=== PATIENT | female | born 1950 | race Caucasian/White ===

== ENCOUNTER → 2016-11-22 | Outpatient (CLI) | payer MEDICAID ==
[~2016-11-22] MED LIST: ADVAIR 250/501 EA INH; ADVAIR DISKUS 21 DSK INH; ALAVERT10 M1 PO; ALBUTEROL0.09 MG/A2 IH; ALBUTEROL0.09 MG/A2 INH; AMBIEN10 M1 PO; AMBIEN10 MG PO; AMITRIPTYLINE H10 M1 PO; ASPI-COR81 M1 PO; ASPIR LOW81 MG PO; ASPIR-LOW81 MG PO; ASPIRIN81 M1 PO; ATENOLOL25 MG PO; BUSPAR DIVIDOSE15 MG PO; CARAFATE1 G1 PO; CLARITIN REDITA10 MG PO; CORDROL20 MG PO; CYMBALTA30 MG PO; CYMBALTA60 MG PO; Clopidogrel75 MG PO; DAYPRO600 M1 PO; DICYCLOMINE HCL10 MG PO; DOXYCYCLINE MO100 MG PO; DULOXETINE HCL30 MG PO; DUONEB 3 MG/3 ML3 M1 INH; ECOTRIN325 MG; ECOTRIN325 MG PO; FAMOTIDINE40 MG PO; HYDROCODONE BIT1 T11 PO; IMDUR30 MG PO; ISORDIL TITRADO30 MG PO; ISORDIL20 MG PO; LIPITOR20 MG PO; LOVENOX30 MG/0.3 SC; MACROBID100 M1 PO; MECLIZINE25 MG PO; MOTRIN600 MG PO; MUCINEX DM 30 M1 TE1 PO; NEURONTIN100 MG PO; NICOTROL 10MG I1 BOX INH; NORCO 10-325 T1 EACH PO; OMEPRAZOLE40 MG PO; OXYCODONE10 MG PO; OXYCODONE5 MG PO; OXYCONTIN10 MG PO; PEPCID40 MG PO; PERCOCET 325 MG1 TA3; PERCOCET 325 MG1 TA3 PO; PERCOCET 325 MG1 TAB PO; PHENERGAN25 M3 PO; PHENERGAN6.25 MG/5 PO; PLAVIX75 M1 PO; PLAVIX75 MG PO; PREDNISONE10 MG PO; PRILOSEC20 MG PO; PROMETHAZINE12.5 M1 PO; PROMETHAZINE25 M1 PO; PROVENTIL0.09 MG/AC INH; RESTORIL30 MG PO; ROBITUSSIN5 ML PO; ROXICODONE5 MG PO; SINGULAIR10 MG PO; SOMA350 MG PO; SPIRIVA18 MCG IH; SPIRIVA18 MCG PO; TRAMADOL HCL50 MG PO; VALIUM10 MG PO; VALIUM5 MG PO; VENTOLIN H0.09 MG/AC INH; VENTOLIN0.09 MG/AC IH; VICO75300 PO; VICODIN 5/500 505 MG PO; VICODIN 500 MG-1 TAB PO; VICODIN HP 6601 TAB PO; ZANAFLEX2 M1 PO; ZOFRAN4 MG PO; [UNRECOGNIZED DRUG - REMARK]
== END | disposition home or self-care (01) ==
LOC: CT 11-16 10:00
DX: J84.10 Pulmonary fibrosis, unspecified (principal); R06.02 Shortness of breath; J43.8 Other emphysema

== ENCOUNTER → 2016-12-04 | Outpatient (CLI) | payer MEDICAID ==
[2016-12-05 08:12] LABS: RHEUMATOID ARTHRITIS FACTOR <10.0 IU/mL (0.0-13.9)
[2016-12-05 10:05] LABS: IMMUNOGLOBULIN IgE 002170 302 IU/mL (0-100)
[2016-12-05 14:06] LABS: ANGIOTENSIN-CONVERTING ENZYME 30 U/L (14-82)
[2016-12-06 00:04] LABS: IGG SUBCLASS 1 789 mg/dL (422-1292); IGG SUBCLASS 2 361 mg/dL (117-747); IGG SUBCLASS 3 121 mg/dL (41-129); IGG SUBCLASS 4 170 mg/dL (1-291)
[2016-12-06 20:10] LABS: BLASTOMYCES ANTIBODY 164293 Negative (Neg:<1:1)
== END | disposition home or self-care (01) ==
LOC: LAB 15:58
PROVIDERS: Internal Medicine Critical Care Medicine
DX: J84.9 Interstitial pulmonary disease, unspecified (principal)

== ENCOUNTER → 2017-01-21 | Outpatient (CLI) | payer MEDICAID ==
[~2017-01-21] MED LIST changes: +BACLOFEN20 M1 PO; +VICO10300 PO
[2017-01-21 10:25] LABS: BASO # 0.1 10*3/uL (0.0-0.1); BASO % 0.9 % (0.0-1.0); EOS # 0.4 10*3/uL (0.0-0.4); EOS % 4.3 % (1.0-4.0); HEMATOCRIT 40.3 % (37.0-47.0); HEMOGLOBIN 13.1 g/dl (12.0-16.0); LYMPH # 1.9 10*3/uL (1.3-4.4); LYMPH % 21.3 % (27.0-41.0); MEAN CELL VOLUME 103.3 fl (81.0-99.0); MEAN CORPUSCULAR HGB 33.6 pg (27.0-31.0); MEAN CORPUSCULAR HGB CONC 32.5 g/dl (33.0-37.0); MEAN PLATELET VOLUME 8.3 fl (9.6-12.3); MONO # 0.8 10*3/uL (0.1-1.0); MONO % 9.1 % (3.0-9.0); NEUT # 5.7 10*3/uL (2.3-7.9); PLATELET COUNT AUTOMATED 386 10*3/uL (130-400); RED CELL DISTRI WIDTH 14.1 % (0-14.5); WHITE BLOOD COUNT 8.9 10*3/uL (4.8-10.8)
== END | disposition home or self-care (01) ==
LOC: LAB 10:10
PROVIDERS: Physician Assistant
DX: M25.562 Pain in left knee (principal); Z96.652 Presence of left artificial knee joint

== ENCOUNTER → 2017-01-25 | Outpatient (CLI) | payer MEDICAID | END | disposition home or self-care (01) | LOC: MRI 08:39 | DX: G89.29 Other chronic pain (principal); M25.511 Pain in right shoulder; R23.3 Spontaneous ecchymoses; Z98.890 Other specified postprocedural states ==

== ENCOUNTER → 2017-05-27 | Outpatient (CLI) | payer MEDICARE, MEDICAID | END | disposition home or self-care (01) | LOC: CT 11:00 | DX: R91.1 Solitary pulmonary nodule (principal); J44.9 Chronic obstructive pulmonary disease, unspecified; M47.894 Other spondylosis, thoracic region; M51.44 Schmorl's nodes, thoracic region; Z87.891 Personal history of nicotine dependence ==

== ENCOUNTER 2017-06-09 01:59 | Emergency (ER) | payer MEDICARE, MEDICAID ==
[~2017-06-09] VITALS: Wt 59.4 kg
[2017-06-09 02:00] VITALS: BP 119/73
[2017-06-09 02:32] LABS: BASO # 0.1 10*3/uL (0.0-0.1); BASO % 0.9 % (0.0-1.0); EOS # 0.4 10*3/uL (0.0-0.4); EOS % 4.8 % (1.0-4.0); HEMATOCRIT 35.6 % (37.0-47.0); HEMOGLOBIN 11.9 g/dl (12.0-16.0); LYMPH # 2.8 10*3/uL (1.3-4.4); LYMPH % 30.5 % (27.0-41.0); MEAN CELL VOLUME 103.5 fl (81.0-99.0); MEAN CORPUSCULAR HGB 34.6 pg (27.0-31.0); MEAN CORPUSCULAR HGB CONC 33.4 g/dl (33.0-37.0); MEAN PLATELET VOLUME 8.1 fl (9.6-12.3); MONO % 11.2 % (3.0-9.0); NEUT # 4.7 10*3/uL (2.3-7.9); NEUT % 52.2 % (47.0-73.0); PLATELET COUNT AUTOMATED 342 10*3/uL (130-400); RED BLOOD COUNT 3.44 10*6/uL (4.10-5.10); RED CELL DISTRI WIDTH 14.2 % (0-14.5)
[2017-06-09 02:43] LABS: BUN 6 mg/dl (7-24); CHLORIDE 104 mmol/L (98-107); CREATININE 0.51 mg/dL (0.55-1.02); POTASSIUM 3.3 mmol/L (3.5-5.1); SODIUM 137 mmol/L (136-145)
[2017-06-09 03:30] LABS: BILIRUBIN NEGATIVE (NEGATIVE); BLOOD NEGATIVE (NEGATIVE); CLARITY CLEAR (CLEAR); COLOR YELLOW (YELLOW); GLUCOSE NEGATIVE (NEGATIVE); KETONE NEGATIVE (NEGATIVE); LEUKO ESTERASE TRACE (NEGATIVE); NITRITE NEGATIVE (NEGATIVE); SPECIFIC GRAVITY <= 1.005 (1.005-1.030); UROBILINOGEN 0.2 E.U./dl (0.2-1.0)
[2017-06-09 03:39] LABS: BACTERIA 1+; URINE AMPHETAMINES < 1000 (1000ng/ml); URINE BARBITURATES < 200 (200ng/ml); URINE BENZODIAZEPINES > 200 (200ng/ml); URINE CANNABINOIDS (THC) < 50 (50ng/ml); URINE COCAINE < 300 (300ng/ml); URINE METHADONE < 300 (300ng/ml); URINE OPIATES > 300 (300ng/ml)
[2017-06-09 03:41] LABS: URINE PHENCYCLIDINE < 25 (25ng/ml)
[2017-06-09] MEDS ORDERED: IBUPROFEN400 MG PO (05:05)
== END 2017-06-09 05:48 | disposition home or self-care (01) ==
LOC: ED 01:59
PROVIDERS: Emergency Medicine Emergency Medical Services
DX: S46.911A Strain of unspecified muscle, fascia and tendon at shoulder and upper arm level, right arm, initial encounter (principal); S70.02XA Contusion of left hip, initial encounter; S00.83XA Contusion of other part of head, initial encounter; F10.129 Alcohol abuse with intoxication, unspecified; K21.9 Gastro-esophageal reflux disease without esophagitis; E78.5 Hyperlipidemia, unspecified; I10 Essential (primary) hypertension; M19.90 Unspecified osteoarthritis, unspecified site; F17.200 Nicotine dependence, unspecified, uncomplicated; Z86.73 Personal history of transient ischemic attack (TIA), and cerebral infarction without residual deficits; Z90.49 Acquired absence of other specified parts of digestive tract; Z96.642 Presence of left artificial hip joint; Z98.890 Other specified postprocedural states; Z90.710 Acquired absence of both cervix and uterus; Z79.899 Other long term (current) drug therapy; Z79.82 Long term (current) use of aspirin; Z88.1 Allergy status to other antibiotic agents; Z88.6 Allergy status to analgesic agent; Z88.8 Allergy status to other drugs, medicaments and biological substances; W01.198A Fall on same level from slipping, tripping and stumbling with subsequent striking against other object, initial encounter; Y93.01 Activity, walking, marching and hiking; Y92.090 Kitchen in other non-institutional residence as the place of occurrence of the external cause; Y99.9 Unspecified external cause status

== ENCOUNTER 2017-10-23 12:34 | Inpatient (IN) | payer MEDICARE ==
[~2017-10-23] VITALS: Ht 147.3 cm; Wt 62.7 kg
--- NOTE | ~2017-10-23 | EKG ---
[place], [place] ELECTROCARDIOGRAM REPORT NAME: VERENICE ALICEA UNIT #: [id number] ROOM: 511 DOCTOR: BRENT HENNESSY MD,DMITRI BIRTHDATE: [birth year] DOS: 10/24/2017 The electrocardiogram was done at 1:58 p.m. Normal sinus rhythm noted. Heart rate 78 beats per minute. There were no abnormalities noted with current electrocardiogram. DMITRI KENNEDY MD CM:EKGRPT:ELECTROCARDIOGRAM REPORT [id number] DMITRI HENNESSY MD
--- NOTE | ~2017-10-23 | PR ---
[place], [place] PROGRESS NOTE [id number] UN[facility] #: [id number] ROOM: 511 DOCTOR: BRENT HENNESSY MDDMITRI BIRTHDATE: [birth year] DOS: 10/25/2017 SUBJECTIVE: The patient was noted about the same yesterday, still noted coughing, chest congestion, wheezing and shortness of breath. Denies symptoms of hemoptysis, fatigue, was reported. She has been continued on intravenous corticosteroids, bronchodilators, other medical management as previously. Denies any pain or edema of the lower extremity. Denies any abdominal pain, nausea, vomiting, dysphagia. Remaining systems were reviewed. They were noted all negative. She is currently noted n.p.o. past midnight for bronchoscopy to be done today as well. OBJECTIVE: VITAL SIGNS: Low grade fever 99.1 degree Fahrenheit, respiration 18, heart rate 82, blood pressure 113/70 recorded this morning. Pulse oxygen saturation on room air 93% saturation. HEENT: Showed no acute change. NECK: Supple. CARDIOVASCULAR: S1, S2 audible. LUNGS: The patient was noted with moderate decreased breath sounds noted in the lungs bilaterally. ABDOMEN: Soft, nontender. EXTREMITIES: The patient was noted without any acute edema. SKIN: No lesions or rashes. MUSCULOSKELETAL SYMPTOMS: Without any acute deformities. LABORATORY DATA: Reviewed today. CBC this morning, hemoglobin 11.2, hematocrit 34.2, platelet count elevated at 137,000, normal WBC count. Blood culture of 10/23 reviewed and noted no bacterial growths. ____ cultures are pending. Urine culture finalized as no bacterial growth. PT/PTT yesterday was done, noted as negative for bronchoscopy. Platelet function assay was noted normal. CT scan of the chest that I ordered without contrast completed, was personally reviewed for this patient shows evidence of changes of emphysema as well as a UIP findings highly suggestive for the patient current CT scan of chest with subpleural distribution honeycombing and traction bronchiectasis. An 8-mm nodule for the patient remains unchanged in the right upper lobe in the subpleural area as compared with 05/12/2016. The interstitial pulmonary fibrotic changes for the patient noted increased as compared with the previous CT scan in 2016. IMPRESSION: 1. Ongoing acute exacerbation of chronic obstructive pulmonary disease with acute tracheobronchitis. 2. Stable pulmonary nodule in the right upper lung, most likely granuloma. 3. Strong suspicion of a UIP. 4. Chronic nicotine dependence. PLAN OF TREATMENT: Continue current dose of corticosteroids, bronchodilators, antibiotic. Proceed with the bronchoscopy assessment of cough. BAL specimen will be also obtained for this patient's right lower lobe subsegments as well [place], [place] PROGRESS NOTE NAME: VERENICE ALICEA UNIT #: [id number] ROOM: [facility] DOCTOR: BRENT HENNESSY MD,DMITRI BIRTHDATE: [birth year] for cell differential. This will hopefully also helpful to assess the patient's interstitial pulmonary fibrosis designation. Other supportive plan of therapy care plan. Addition treatment changes to be made based on progression of illness. DMITRI KENNEDY MD CM:PNTRANS [id number] 2 DMITRI HENNESSY MD 10/26/17 0100 interface
--- NOTE | ~2017-10-23 | PR ---
[place], [place] PROGRESS NOTE NAME: VERENICE ALICEA UNIT #: [id number] ROOM: 511 DOCTOR: DMITRI BUNN MD BIRTHDATE: [birth year] DOS: 10/26/2017 PULMONARY PROGRESS NOTE SUBJECTIVE: She has shown significant improvement and reduction in respiratory symptoms after the bronchoscopy with coughing, shortness of breath and all symptoms have been improving. Preliminary bacteria, no bacterial growth was noted on the cultures. The patient denies symptoms of hemoptysis or any chest pain. PHYSICAL EXAMINATION: VITAL SIGNS: For the patient which has been recorded showed the temperature noted as normal, respiratory rate 18, heart rate 87, blood pressure 100/58. HEENT: Showed head was atraumatic, eyes nonicterus. NECK: Supple. CARDIOVASCULAR: S1, S2 audible. LUNGS: Noted with crackles of the lungs. There was no wheezing. ABDOMEN: Soft, nontender. EXTREMITIES: Without any edema. LABORATORY DATA: The culture of the bronchial washing shows normal angelica, the Gram stain with a few white blood cells with epithelial cells, no microorganisms seen. The differential noted at 13% eosinophils with 70% macrophages. IMPRESSION: The patient has been currently noted with interstitial pulmonary fibrosis, status post bronchoscopy. The patient is noted with reduction and improvement in respiratory symptoms and resolving acute exacerbation of chronic obstructive pulmonary disease. PLAN OF MANAGEMENT: The patient could be considered home discharge pm oral medications and tapering antibiotics. Outpatient followup for interstitial lung disease with Pulmonary as previously scheduled. [place], [place] PROGRESS NOTE NAME: VERENICE ALICEA UNIT #: [id number] ROOM: 511 DOCTOR: DMITRI BUNN MD BIRTHDATE: [birth year] DMITRI KENNEDY MD CM:PNTRANS [id number] DMITRI HENNESSY MD 10/26/17 1024 interface
--- NOTE | ~2017-10-23 | PROC NOTE ---
[place], [place] PROCEDURE NOTE NAME: VERENICE ALICEA UNIT #: [id number] ROOM: 511 DOCTOR: BRENT HENNESSY MD,DMITRI BIRTHDATE: [birth year] DOS: 10/25/2017 PREOPERATIVE DIAGNOSES: Bilateral pulmonary infiltration with severe nonproductive cough with exacerbation of chronic obstructive pulmonary disease. POSTOPERATIVE DIAGNOSES: Evidence of mucus plug in bronchial tree bilaterally and subsegments. No endobronchial obstructive lesion. BAL specimen of the right lower lobe was also obtained. PROCEDURE DESCRIPTION: Informed consent obtained for the patient. The patient was brought to the OR and placed in supine position. Conscious sedation administered by the Anesthesia Department. After achieving proper sedation, airway introduced into the mouth. Bronchoscope advanced to the airway into laryngeal area. Epiglottis and vocal cords were seen. The bronchoscope advanced to the vocal cords and to tracheal lumen. Tracheal lumen was identified, but noted with small amount of mucoid secretion. The patient suctioned out to the saima level. Similar secretion present in bilateral endobronchial tree, which was suctioned out and cleared that with normal saline wash, sent for cultures. Procedure was well tolerated by the patient without difficulty. Postoperative findings will be discussed once the patient recovered the effects of acute sedation. DMITRI KENNEDY MD CM:PROCNOTE:PROCEDURE NOTE [id number] DMITRI HENNESSY MD
--- NOTE | ~2017-10-23 | CON ---
[place], [place] REPORT OF CONSULTATION NAME: VERENICE ALICEA UNIT #: [id number] ROOM: 511 DOCTOR: DMITRI BUNN MD BIRTHDATE: [birth year] DOS: 10/24/2017 PULMONARY CONSULTATION, EVALUATION, AND MANAGEMENT CONSULTATION REQUESTED BY: Hospitalist services. CHIEF COMPLAINT: The consultation was done for the assessment of ongoing acute exacerbation of chronic obstructive pulmonary disease. The patient with progressive symptoms, now resolving, previously for the past several weeks and current hospitalization for acute exacerbation of chronic obstructive pulmonary disease. HISTORY OF PRESENT ILLNESS: This is a 67-year-old white female patient who has been known to me very well. The patient has been seen in my office recently a couple of days ago noted with progressive increased respiratory symptom ongoing for several weeks. The symptoms have been noted progressive and not resolving. The patient was assessed and advised to go to the hospital for further medical management of severe ongoing acute respiratory symptom with exacerbation of COPD, nonresponsive to the treatment. The patient went to the Emergency Room and then hospitalized on 10/23/2017. She has been noted symptoms of progressive chest congestion and coughing ongoing for the past several days. The coughing has been noted moderate to severe, nonproductive, unable to expectorate sputum with hard cough. The pain was described as low pressure with excessive cough. She has been noted continuous wheezing with tightness in the chest and shortness of breath with minimal exertion. Denies symptoms of hemoptysis. The patient has been treated previously at home for this patient with exacerbation of chronic obstructive pulmonary disease with corticosteroids and antibiotics. REVIEW OF SYSTEMS: CONSTITUTIONAL: Fatigue and tiredness noted without symptoms of fever or chills. EYES: Denies any burning, redness, or tenderness. EAR, NOSE, AND THROAT: No sore throat, hoarseness, otalgia, postnasal drainage. CARDIOVASCULAR: Denies angina pain, edema, or pain of the lower extremities. GASTROINTESTINAL: Denies dysphagia, nausea, vomiting, diarrhea, abdominal pain, hematemesis, melena, hematochezia. SKIN: Denies any abnormal lesions or rashes. MUSCULOSKELETAL: No acute joint pain reported, history of osteoarthritis, known that remains unchanged. There were no redness or deformity is reported. CENTRAL NERVOUS SYSTEM: Denies dizziness, headache, diplopia, syncopal episodes. Remaining systems were reviewed with the patient, they were noted all negative. PAST MEDICAL HISTORY: The patient was known with: 1. History of COPD. 2. Bronchial asthma, moderate to severity. 3. History of post-inflammatory pulmonary fibrosis. 4. An 8 mm nodule in the right upper lobe. 5. Coronary artery disease. [place], [place] REPORT OF CONSULTATION NAME: VERENICE ALICEA UNIT #: [id number] ROOM: 511 DOCTOR: BRENT HENNESSY MD,DMITRI BIRTHDATE: [birth year] 6. Essential hypertension. 7. Mild obesity. 8. Hypercholesterolemia. PAST SURGICAL HISTORY: 1. Laparoscopic cholecystectomy. 2. Left shoulder arthroplasty. 3. Right rotator cuff surgery. 4. Heel spur removed. 5. Arthroscopy of the right knee. 6. History of left femur fracture. 7. Multiple right ankle surgeries. 8. Hiatal hernia repair. 9. Cataract extraction with lens implantation. 10. Left breast biopsy, which was benign. SOCIAL HISTORY: The patient is , has 2 children, lives at home. Smoking noted from age of [age] years old, continued chronic tobacco use, 1 pack of cigarettes per day, actively. No history of illicit drug use. FAMILY HISTORY: Father at 80 years old, complication of diabetes mellitus. The mother at the age of 52 years, complication related to the renal failure. MEDICATIONS: The patient at home were noted as use of ProAir HFA inhaler, albuterol nebulizer p.r.n. use, aspirin, atenolol, Plavix, diazepam, Cymbalta, Advair, [place], loratadine, omeprazole, promethazine, and Incruse Ellipta. DRUG ALLERGIES: 1. CIPROFLOXACIN. 2. LEXISCAN. 3. PREDNISONE. PHYSICAL EXAMINATION: GENERAL: This is a 67-year-old female who has been noted currently awake and alert without any acute distress at this time with assessment this morning. VITAL SIGNS: Height were recorded by the nursing staff as 4 feet 10 inches, weight 238 pounds, BMI 28. Normal temperature, respiratory rate 18-20, heart rate of 68-72, blood pressure 140/83-114/60. Pulse oxygen saturation on room air was 95% saturation. HEENT: Examination shows head was atraumatic. Eyes nonicterus. NECK: Supple. CARDIOVASCULAR: S1, S2 audible. LUNGS: Diffuse reduction in breath sounds with moderate expiratory wheezing bilaterally without any crackles. ABDOMEN: Soft, nontender. It was flat. EXTREMITIES: Without any acute edema. MUSCULOSKELETAL: Without acute deformities. SKIN: Noted with any abnormal lesions or rashes. [place], [place] REPORT OF CONSULTATION NAME: VERENICE ALICEA UNIT #: [id number] ROOM: 511 DOCTOR: BRENT HENNESSY MD,DMITRI BIRTHDATE: [birth year] LABORATORY DATA: CBC on 10/23/2017, noted as normal CBC except platelet count mildly elevated 472,000. CMP on 10/23/2017, BUN and creatinine was normal, sodium 133, albumin 3.3. Lactic acid yesterday 1.7. CBC on 10/24/2017, essentially remains the same with hemoglobin 10. The BUN and creatinine this morning was normal, sodium was corrected normal. The chest x-ray, 2-view, which was done this morning, was reviewed, noted with findings of pulmonary fibrosis and possibility of acute infiltration. The right lower lobe cannot be completely excluded. IMPRESSION: 1. The patient who has been noted failed outpatient treatment with ongoing acute exacerbation of chronic obstructive pulmonary disease with chronic nicotine dependence. 2. History of pulmonary fibrosis as well as possible right lower lobe pneumonia, atelectasis, or progression of pulmonary fibrosis remains in consideration. 3. Ineffective cough to expectorate sputum. 4. Musculoskeletal pain in the chest related to current acute cough. 5. History of coronary artery disease, allergic rhinitis, and several other problems. PLAN OF TREATMENT: The patient will be ordered the CT scan of the chest without contrast including the high resolution images for more clear delineation of the current problem as well. High resolution images will be obtained as well. The comparison will be done from the previous CT scan as well including assessment of pulmonary nodules. Any additional changes will be needed to be done after it. The bronchoscopy is planned to be done in the morning as well. The BAL specimen obtained, if necessary depends on the CT scan of the chest assessment. Other supportive therapy, plan of management, and care plan. Ordered sputum for Gram stain and culture. Continue bronchodilators. Nicotine replacement patch to overcome the nicotine withdrawal as well. Tobacco cessation counseling was done with the patient. Other supportive therapy, plan of management as in progress will be continued. No changes in the antibiotics will be necessary. Thanks for allowing me to participate in the care of this patient. DMITRI KENNEDY MD CM:CONSTR:REPORT OF CONSULTATION 1705 10/25/17 0042 interface
[~2017-10-23 12:34] MED LIST changes: +IBUPROFEN400 MG PO
[2017-10-23 12:36] VITALS: BP 140/89
[2017-10-23] MEDS ORDERED: PLAVIX75 M1 PO (12:43)
[2017-10-23] MEDS ORDERED: ASPIRIN81 M1 PO (12:43)
[2017-10-23] MEDS ORDERED: CLARITIN10 MG PO (12:44)
[2017-10-23] MEDS ORDERED: CYMBALTA60 MG PO (12:44)
[2017-10-23] MEDS ORDERED: OMEPRAZOLE40 MG PO (12:44)
[2017-10-23] MEDS ORDERED: ATENOLOL25 MG PO (12:44)
[2017-10-23] MEDS ORDERED: INCRUSE ELLI62.5 MCG INH (12:45)
[2017-10-23] MEDS ORDERED: PROMETHAZINE12.5 M1 PO (12:45)
[2017-10-23] MEDS ORDERED: DIAZEPAM5 MG PO (12:45)
[2017-10-23] MEDS ORDERED: ALBUTEROL2.5 MG/0.5 INH (12:46)
[2017-10-23] MEDS ORDERED: PROAIR HFA8.5 GM INH (12:46)
[2017-10-23] MEDS ORDERED: ADVAIR 250/501 EA INH (12:46)
[2017-10-23] MEDS ORDERED: NORCO 10-325 T1 EACH PO (12:46)
[2017-10-23 13:38] LABS: BASO # 0.1 10*3/uL (0.0-0.1); BASO % 1.2 % (0.0-1.0); EOS # 0.8 10*3/uL (0.0-0.4); EOS % 7.9 % (1.0-4.0); HEMATOCRIT 37.3 % (37.0-47.0); LYMPH % 29.8 % (27.0-41.0); MEAN CORPUSCULAR HGB 33.1 pg (27.0-31.0); MEAN CORPUSCULAR HGB CONC 32.2 g/dl (33.0-37.0); MEAN PLATELET VOLUME 8.3 fl (9.6-12.3); MONO # 0.9 10*3/uL (0.1-1.0); MONO % 8.9 % (3.0-9.0); NEUT # 5.2 10*3/uL (2.3-7.9); NEUT % 51.7 % (47.0-73.0); PLATELET COUNT AUTOMATED 472 10*3/uL (130-400); RED BLOOD COUNT 3.62 10*6/uL (4.10-5.10); RED CELL DISTRI WIDTH 14.8 % (0-14.5); WHITE BLOOD COUNT 10.1 10*3/uL (4.8-10.8)
[2017-10-23 13:54] LABS: ALKALINE PHOSPHATASE 189 U/L (45-117); BUN 5 mg/dl (7-24); CHLORIDE 101 mmol/L (98-107); CREATININE 0.66 mg/dL (0.55-1.02); POTASSIUM 4.6 mmol/L (3.5-5.1); SGOT/AST 32 IU/L (3-35); SGPT/ALT 31 U/L (12-78); SODIUM 133 mmol/L (136-145); TOTAL PROTEIN 8.1 gm/dL (6.4-8.2)
[2017-10-23 14:35] LABS: BILIRUBIN NEGATIVE (NEGATIVE); BLOOD NEGATIVE (NEGATIVE); CLARITY SL CLOUDY (CLEAR); COLOR YELLOW (YELLOW); GLUCOSE NEGATIVE (NEGATIVE); KETONE NEGATIVE (NEGATIVE); LEUKO ESTERASE TRACE (NEGATIVE); NITRITE NEGATIVE (NEGATIVE); SPECIFIC GRAVITY <= 1.005 (1.005-1.030); UROBILINOGEN 0.2 E.U./dl (0.2-1.0)
[2017-10-23 14:38] VITALS: BP 123/67
[2017-10-23 14:44] LABS: BACTERIA 1+; EPITHELIAL CELLS TNTC; RBC 0-2 rbc/hpf (0-2)
[2017-10-23 16:00] VITALS: BP 115/56
[2017-10-23 20:00] VITALS: BP 105/58
[2017-10-24] VITALS: BP 122/71
[2017-10-24 07:27] LABS: BASO # 0.1 10*3/uL (0.0-0.1); BASO % 1.2 % (0.0-1.0); EOS # 0.7 10*3/uL (0.0-0.4); EOS % 7.3 % (1.0-4.0); HEMATOCRIT 33.1 % (37.0-47.0); HEMOGLOBIN 10.8 g/dl (12.0-16.0); LYMPH # 3.2 10*3/uL (1.3-4.4); LYMPH % 33.7 % (27.0-41.0); MEAN CELL VOLUME 103.4 fl (81.0-99.0); MEAN CORPUSCULAR HGB 33.8 pg (27.0-31.0); MEAN CORPUSCULAR HGB CONC 32.6 g/dl (33.0-37.0); MEAN PLATELET VOLUME 8.3 fl (9.6-12.3); MONO # 0.9 10*3/uL (0.1-1.0); MONO % 9.8 % (3.0-9.0); NEUT # 4.5 10*3/uL (2.3-7.9); NEUT % 47.6 % (47.0-73.0); PLATELET COUNT AUTOMATED 419 10*3/uL (130-400); RED CELL DISTRI WIDTH 14.7 % (0-14.5); WHITE BLOOD COUNT 9.4 10*3/uL (4.8-10.8)
[2017-10-24 07:38] LABS: CHLORIDE 109 mmol/L (98-107); POTASSIUM 4.4 mmol/L (3.5-5.1); SODIUM 140 mmol/L (136-145)
[2017-10-24 07:46] LABS: ALBUMIN 2.4 gm/dl (3.1-4.5); ALKALINE PHOSPHATASE 149 U/L (45-117); BUN 7 mg/dl (7-24); CHOLESTEROL 145 mg/dL (<200); CREATININE 0.64 mg/dL (0.55-1.02); FREE T4 0.84 ng/dl (0.76-1.46); HDL CHOLESTEROL 34 mg/dl (40-60); LDL CHOLESTEROL 84 mg/dL (9-159); PHOSPHOROUS 2.9 mg/dL (2.5-4.9); SGOT/AST 23 IU/L (3-35); SGPT/ALT 22 U/L (12-78); TOTAL PROTEIN 6.9 gm/dL (6.4-8.2); TRIGLYCERIDES 137 mg/dl (<150); VLDL CHOLESTEROL 27 mg/dL (6-40)
[2017-10-24 08:00] VITALS: BP 114/60
[2017-10-24 09:23] LABS: VITAMIN D, 25-HYDROXY 14.8 ng/mL (30-100)
[2017-10-24 10:39] LABS: ACT PARTIAL THROMBO TIME 27.9 SECONDS (20.8-31.5); INTERNATIONAL NORM RATIO 0.9 (2.0-3.5)
[2017-10-24 12:00] VITALS: BP 116/63
[2017-10-24 16:00] VITALS: BP 109/59
[2017-10-24 20:18] VITALS: BP 138/79
[2017-10-25] VITALS (9 sets, daily range): BP systolic 98–166; BP diastolic 53–87
[2017-10-25 07:13] LABS: BASO # 0.1 10*3/uL (0.0-0.1); BASO % 1.3 % (0.0-1.0); EOS # 0.8 10*3/uL (0.0-0.4); EOS % 8.7 % (1.0-4.0); HEMATOCRIT 34.7 % (37.0-47.0); HEMOGLOBIN 11.2 g/dl (12.0-16.0); LYMPH # 3.3 10*3/uL (1.3-4.4); LYMPH % 34.8 % (27.0-41.0); MEAN CELL VOLUME 103.3 fl (81.0-99.0); MEAN CORPUSCULAR HGB 33.3 pg (27.0-31.0); MEAN CORPUSCULAR HGB CONC 32.3 g/dl (33.0-37.0); MEAN PLATELET VOLUME 8.5 fl (9.6-12.3); MONO % 10.8 % (3.0-9.0); NEUT # 4.1 10*3/uL (2.3-7.9); NEUT % 43.9 % (47.0-73.0); PLATELET COUNT AUTOMATED 437 10*3/uL (130-400); RED BLOOD COUNT 3.36 10*6/uL (4.10-5.10); RED CELL DISTRI WIDTH 14.8 % (0-14.5); WHITE BLOOD COUNT 9.4 10*3/uL (4.8-10.8)
[2017-10-25 12:38] LABS: BF LYMPHOCYTES 2 %; BF MACROPHAGES 77 %; BF NEUTROPHILS 5 %
[2017-10-26] VITALS: BP 98/51
[2017-10-26 08:00] VITALS: BP 100/58
[2017-10-26] MEDS ORDERED: DOXYCYCLINE100 M3 PO (10:21)
[2017-10-26] MEDS ORDERED: Vitamin D PO (10:21)
[2017-10-26] MEDS ORDERED: NATURE'S BLEND F1 MG PO (10:21)
[2017-10-26] MEDS ORDERED: VITAMIN D-32000 UNIT PO (10:22)
[2017-10-26 14:03] LABS: ACID FAST SPEC PROCESSING Concentration (.)
== END 2017-10-26 11:15 | disposition home or self-care (01) | DRG 166 ==
LOC: ED 12:34 → 5E 15:28 → EDHOLD 15:28 → 5E 15:36
PROVIDERS: Internal Medicine Critical Care Medicine; Internal Medicine Hospice and Palliative Medicine; Physician Assistant; Registered Nurse
DX: J44.1 Chronic obstructive pulmonary disease with (acute) exacerbation (principal); J15.6 Pneumonia due to other Gram-negative bacteria; E43 Unspecified severe protein-calorie malnutrition; T17.490A Other foreign object in trachea causing asphyxiation, initial encounter; T17.590A Other foreign object in bronchus causing asphyxiation, initial encounter; D69.6 Thrombocytopenia, unspecified; E83.51 Hypocalcemia; E87.1 Hypo-osmolality and hyponatremia; E87.8 Other disorders of electrolyte and fluid balance, not elsewhere classified; J44.0 Chronic obstructive pulmonary disease with (acute) lower respiratory infection; Z66 Do not resuscitate; J84.10 Pulmonary fibrosis, unspecified; I10 Essential (primary) hypertension; I34.1 Nonrheumatic mitral (valve) prolapse; E78.2 Mixed hyperlipidemia; K21.9 Gastro-esophageal reflux disease without esophagitis; F41.9 Anxiety disorder, unspecified; F32.9 Major depressive disorder, single episode, unspecified; I73.9 Peripheral vascular disease, unspecified; K58.9 Irritable bowel syndrome, unspecified; M19.90 Unspecified osteoarthritis, unspecified site; Z96.652 Presence of left artificial knee joint; Z96.612 Presence of left artificial shoulder joint; Z96.1 Presence of intraocular lens; R91.1 Solitary pulmonary nodule; J20.9 Acute bronchitis, unspecified; J30.2 Other seasonal allergic rhinitis; D53.9 Nutritional anemia, unspecified; I25.10 Atherosclerotic heart disease of native coronary artery without angina pectoris; E66.9 Obesity, unspecified; E78.00 Pure hypercholesterolemia, unspecified; F17.210 Nicotine dependence, cigarettes, uncomplicated; E53.8 Deficiency of other specified B group vitamins; X58.XXXA Exposure to other specified factors, initial encounter; Y93.89 Activity, other specified; Y92.89 Other specified places as the place of occurrence of the external cause; Y99.8 Other external cause status; Z68.28 Body mass index [BMI] 28.0-28.9, adult; Z86.73 Personal history of transient ischemic attack (TIA), and cerebral infarction without residual deficits; Z79.02 Long term (current) use of antithrombotics/antiplatelets; Z88.1 Allergy status to other antibiotic agents; Z88.8 Allergy status to other drugs, medicaments and biological substances; Z90.49 Acquired absence of other specified parts of digestive tract; Z90.710 Acquired absence of both cervix and uterus; Z72.89 Other problems related to lifestyle; Z83.3 Family history of diabetes mellitus; Z84.1 Family history of disorders of kidney and ureter; Z82.49 Family history of ischemic heart disease and other diseases of the circulatory system; Z87.01 Personal history of pneumonia (recurrent); Z79.899 Other long term (current) drug therapy; Z79.82 Long term (current) use of aspirin; Z71.6 Tobacco abuse counseling; Z98.49 Cataract extraction status, unspecified eye

== ENCOUNTER → 2017-11-08 | Outpatient (CLI) | payer MEDICARE ==
[~2017-11-08] MED LIST changes: +ALBUTEROL2.5 MG/0.5 INH; +CLARITIN10 MG PO; +DIAZEPAM5 MG PO; +DOXYCYCLINE100 M3 PO; +INCRUSE ELLI62.5 MCG INH; +NATURE'S BLEND F1 MG PO; +PROAIR HFA8.5 GM INH; +VITAMIN D-32000 UNIT PO; +Vitamin D PO
== END | disposition home or self-care (01) ==
LOC: MRI 10-16 11:00
DX: M47.896 Other spondylosis, lumbar region (principal); M48.07 Spinal stenosis, lumbosacral region

== ENCOUNTER → 2017-12-13 | Outpatient (CLI) | payer MEDICARE ==
[2017-12-13 13:54] LABS: BASO # 0.1 10*3/uL (0.0-0.1); BASO % 1.1 % (0.0-1.0); EOS # 0.4 10*3/uL (0.0-0.4); EOS % 5.2 % (1.0-4.0); HEMATOCRIT 37.2 % (37.0-47.0); HEMOGLOBIN 12.1 g/dl (12.0-16.0); LYMPH # 2.3 10*3/uL (1.3-4.4); LYMPH % 28.7 % (27.0-41.0); MEAN CELL VOLUME 100.8 fl (81.0-99.0); MEAN CORPUSCULAR HGB 32.8 pg (27.0-31.0); MEAN CORPUSCULAR HGB CONC 32.5 g/dl (33.0-37.0); MEAN PLATELET VOLUME 8.2 fl (9.6-12.3); MONO # 0.8 10*3/uL (0.1-1.0); MONO % 10.1 % (3.0-9.0); NEUT # 4.4 10*3/uL (2.3-7.9); NEUT % 54.5 % (47.0-73.0); PLATELET COUNT AUTOMATED 407 10*3/uL (130-400); RED BLOOD COUNT 3.69 10*6/uL (4.10-5.10); WHITE BLOOD COUNT 8.1 10*3/uL (4.8-10.8)
[2017-12-13 14:14] LABS: ALBUMIN 3.1 gm/dl (3.1-4.5); BILIRUBIN, DIRECT 0.2 mg/dL (0.0-0.2); TOTAL PROTEIN 8.1 gm/dL (6.4-8.2)
== END | disposition home or self-care (01) ==
LOC: LAB 13:19
PROVIDERS: Internal Medicine Critical Care Medicine
DX: Z51.81 Encounter for therapeutic drug level monitoring (principal); Z79.899 Other long term (current) drug therapy

== ENCOUNTER → 2018-01-15 | Outpatient (CLI) | payer MEDICARE ==
[~2018-01-15] MED LIST changes: +PROTONIX40 MG PO
[2018-01-15 11:59] LABS: BASO # 0.1 10*3/uL (0.0-0.1); BASO % 1.4 % (0.0-1.0); EOS # 0.5 10*3/uL (0.0-0.4); HEMATOCRIT 38.8 % (37.0-47.0); HEMOGLOBIN 12.5 g/dl (12.0-16.0); LYMPH # 2.8 10*3/uL (1.3-4.4); LYMPH % 31.8 % (27.0-41.0); MEAN CELL VOLUME 99.2 fl (81.0-99.0); MEAN CORPUSCULAR HGB CONC 32.2 g/dl (33.0-37.0); MEAN PLATELET VOLUME 8.2 fl (9.6-12.3); MONO # 0.8 10*3/uL (0.1-1.0); MONO % 9.2 % (3.0-9.0); NEUT # 4.5 10*3/uL (2.3-7.9); NEUT % 51.3 % (47.0-73.0); PLATELET COUNT AUTOMATED 398 10*3/uL (130-400); RED BLOOD COUNT 3.91 10*6/uL (4.10-5.10); RED CELL DISTRI WIDTH 13.7 % (0-14.5); WHITE BLOOD COUNT 8.7 10*3/uL (4.8-10.8)
[2018-01-15 12:23] LABS: ALBUMIN 3.4 gm/dl (3.1-4.5); ALKALINE PHOSPHATASE 88 U/L (45-117); BILIRUBIN, DIRECT < 0.1 mg/dL (0.0-0.2); SGOT/AST 22 IU/L (3-35); SGPT/ALT 16 U/L (12-78); TOTAL PROTEIN 8.5 gm/dL (6.4-8.2)
== END | disposition home or self-care (01) ==
LOC: LAB 11:23
PROVIDERS: Internal Medicine Critical Care Medicine
DX: Z51.81 Encounter for therapeutic drug level monitoring (principal); Z79.899 Other long term (current) drug therapy

== ENCOUNTER → 2018-03-14 | Day surgery (SDC) | payer OTHER ==
[~2018-03-14] VITALS: Ht 144.7 cm; Wt 61.2 kg
--- NOTE | ~2018-03-14 | O ---
[place], [place] OPERATIVE NOTE NAME: VERENICE ALICEA UNIT #: [id number] ROOM: DOCTOR: GABBI POST MD BIRTHDATE: [birth year] DOS: 03/14/2018 HISTORY OF PRESENT ILLNESS: A 67-year-old patient with dysphagia has presented with chief complaint of nausea at the same time. The patient is aggressive smoker. Nonalcohol consumer. PAST MEDICAL HISTORY: Extensive history. She is on aspirin, Plavix, Cymbalta, diazepam, Advair, ProAir, Protonix as far as medication is concerned. She has history of COPD. PAST SURGICAL HISTORY: Hysterectomy, rotator cuff, right shoulder, cholecystectomy, total right knee, and podiatric surgeries. PROCEDURE: Today's procedure part of investigation is panendoscopy plus balloon dilation of esophagus to size 20. PREMEDICATION: Propofol. SCOPE: Olympus forward-viewing gastroscope Q10 video. REPORT: After putting the patient in left lateral position and application of lubricant to the scope, the scope was introduced. Thereafter, under direct visualization, I advanced through the length of esophagus without difficulty. Benign stricture. Esophagus was addressed up to size 20 and the most resistant part of dilation was her upper esophagus. Gastric pouch was entered. Gastritis was seen of mild degree. Duodenal bulb, second and third part within normal limit. Photographic series obtained. Air was suctioned out. The patient was extubated, tolerated the procedure well. IMPRESSION: Benign esophageal stricture, status post balloon dilation to size 20. Mild gastritis. She is already on chronic Protonix. PLAN AND DISCUSSION: The patient advised to abstain from smoking since she has been stressed with the nicotine and elevation of the head of the bed all time and supportive measures, otherwise. She is going to be back on regular diet and follow up routinely with you in office and she is going to have a 2 weeks visit office with us in GI Clinic to assure that dilation has helped her or otherwise. Thank you very much indeed. [place], [place] OPERATIVE NOTE NAME: VERENICE ALICEA UNIT #: [id number] ROOM: DOCTOR: GABBI POST MD BIRTHDATE: [birth year] GABBI POST MD CM:OPRECORD:OPERATIVE NOTE 1415 1554 KARLA POST MD 03/14/18 1552 interface
[2018-03-14 13:35] VITALS: BP 101/69
[2018-03-14 14:08] VITALS: BP 106/57
[2018-03-14 14:20] VITALS: BP 90/57
[2018-03-14 14:32] VITALS: BP 119/56
== END | disposition home or self-care (01) ==
LOC: SDC 03-12 08:00
DX: K22.2 Esophageal obstruction (principal); K29.70 Gastritis, unspecified, without bleeding; J44.9 Chronic obstructive pulmonary disease, unspecified; I10 Essential (primary) hypertension; K21.9 Gastro-esophageal reflux disease without esophagitis; F41.8 Other specified anxiety disorders; F17.210 Nicotine dependence, cigarettes, uncomplicated; Z88.1 Allergy status to other antibiotic agents; Z88.8 Allergy status to other drugs, medicaments and biological substances; Z90.710 Acquired absence of both cervix and uterus; Z90.49 Acquired absence of other specified parts of digestive tract; Z79.01 Long term (current) use of anticoagulants; Z79.899 Other long term (current) drug therapy; Z86.73 Personal history of transient ischemic attack (TIA), and cerebral infarction without residual deficits; Z82.49 Family history of ischemic heart disease and other diseases of the circulatory system

== ENCOUNTER → 2018-03-24 | Outpatient (CLI) | payer OTHER ==
[2018-03-24 16:42] LABS: BASO # 0.1 10*3/uL (0.0-0.1); EOS # 0.6 10*3/uL (0.0-0.4); EOS % 6.8 % (1.0-4.0); HEMATOCRIT 38.3 % (37.0-47.0); HEMOGLOBIN 12.7 g/dl (12.0-16.0); LYMPH % 35.5 % (27.0-41.0); MEAN CELL VOLUME 98.5 fl (81.0-99.0); MEAN CORPUSCULAR HGB 32.6 pg (27.0-31.0); MEAN CORPUSCULAR HGB CONC 33.2 g/dl (33.0-37.0); MEAN PLATELET VOLUME 8.5 fl (9.6-12.3); MONO % 11.3 % (3.0-9.0); NEUT # 3.8 10*3/uL (2.3-7.9); PLATELET COUNT AUTOMATED 369 10*3/uL (130-400); RED BLOOD COUNT 3.89 10*6/uL (4.10-5.10); RED CELL DISTRI WIDTH 14.1 % (0-14.5); WHITE BLOOD COUNT 8.4 10*3/uL (4.8-10.8)
[2018-03-24 16:55] LABS: ALBUMIN 3.3 gm/dl (3.1-4.5); BILIRUBIN, DIRECT 0.3 mg/dL (0.0-0.2); TOTAL PROTEIN 8.1 gm/dL (6.4-8.2)
== END | disposition home or self-care (01) ==
LOC: LAB 16:02
PROVIDERS: Internal Medicine Critical Care Medicine
DX: M79.641 Pain in right hand (principal); Z79.899 Other long term (current) drug therapy

== ENCOUNTER → 2018-07-24 | Outpatient (CLI) | payer OTHER | END | disposition home or self-care (01) | LOC: US 12:57 | DX: R10.2 Pelvic and perineal pain (principal); Z90.710 Acquired absence of both cervix and uterus; Z90.49 Acquired absence of other specified parts of digestive tract ==

== ENCOUNTER → 2018-08-21 | Outpatient (CLI) | payer OTHER ==
[~2018-08-21] MED LIST changes: +AZITHROMYCIN500 M2 PO; +ETHAMBUTOL HYD400 MG PO; +HYDROXYZINE PAM50 MG PO; +NORCO 5-325 TA1 EACH PO; +ROSUVASTATIN CA20 MG PO; +Rimactane,Rifa300 MG PO; +VISTARIL25 MG PO
[2018-08-21 14:57] LABS: BASO # 0.1 10*3/uL (0.0-0.1); BASO % 1.1 % (0.0-1.0); EOS # 0.7 10*3/uL (0.0-0.4); EOS % 8.1 % (1.0-4.0); HEMATOCRIT 39.2 % (37.0-47.0); HEMOGLOBIN 12.9 g/dl (12.0-16.0); LYMPH # 2.5 10*3/uL (1.3-4.4); MEAN CELL VOLUME 100.3 fl (81.0-99.0); MEAN CORPUSCULAR HGB CONC 32.9 g/dl (33.0-37.0); MEAN PLATELET VOLUME 8.4 fl (9.6-12.3); MONO # 0.9 10*3/uL (0.1-1.0); NEUT % 49.4 % (47.0-73.0); PLATELET COUNT AUTOMATED 416 10*3/uL (130-400); RED BLOOD COUNT 3.91 10*6/uL (4.10-5.10); RED CELL DISTRI WIDTH 13.9 % (0-14.5); WHITE BLOOD COUNT 8.2 10*3/uL (4.8-10.8)
[2018-08-21 15:19] LABS: ALBUMIN 3.2 gm/dl (3.1-4.5)
[2018-08-21 15:22] LABS: ALKALINE PHOSPHATASE 96 U/L (45-117); BILIRUBIN, DIRECT < 0.1 mg/dL (0.0-0.2); SGOT/AST 21 IU/L (3-35); SGPT/ALT 16 U/L (12-78); TOTAL PROTEIN 8.4 gm/dL (6.4-8.2)
== END | disposition home or self-care (01) ==
PROVIDERS: Internal Medicine Critical Care Medicine
DX: Z79.899 Other long term (current) drug therapy (principal)

== ENCOUNTER → 2018-10-15 | Day surgery (SDC) | payer OTHER ==
[~2018-10-15] VITALS: Ht 144.7 cm; Wt 66.7 kg
--- NOTE | ~2018-10-15 | O ---
[place], [place] OPERATIVE NOTE NAME: VERENICE ALICEA UNIT #: [id number] ROOM: DOCTOR: GABBI POST MD BIRTHDATE: [birth year] DOS: 10/15/2018 INDICATIONS: This is a 68-year-old patient who presented with a chief complaint of dysphagia to solid food. The patient is status post Dimas fundoplication. Her past medical history is also associated right rotator cuff, cholecystectomy, hysterectomy, knee repairs prostheses. ALLERGIES: PENICILLIN AND CIPRO. MEDICATIONS: Protonix 40 mg daily. Dry heaves that time, nausea and vomiting at times chronically. PROCEDURE: Today's procedure part of investigation is panendoscopy plus biopsy plus balloon dilation of esophagus. PREMEDICATION: Propofol. SCOPE: Olympus forward-viewing gastroscope Q10 video. REPORT: After putting the patient in left lateral position and application of lubricant to the scope, the scope was introduced. Thereafter, under direct visualization, advanced through the length of esophagus without difficulty. Distal esophageal benign stricture secondary to Dimas fundoplication was noticed. Gastric pouch was entered multi-gastric erosions identified. Antral biopsy from margin of one of these ulcers was taken. Balloon size 15-18 was utilized and effective size 17 for dilation was undertaken, particularly to distal esophagus. The patient extubated, tolerated the procedure well. IMPRESSION: Multi-gastric small erosions, status post biopsy and balloon dilation of distal esophagus size 70. PLAN AND DISCUSSION: Regular diet. Will continue Protonix 40 mg daily, Phenergan 12.5 mg 20 tablets prn per day, and will use Gaviscon as antacid. ACTIVITY: Ad daria. FOLLOWUP: As outpatient. [place], [place] OPERATIVE NOTE NAME: VERENICE ALICEA UNIT #: [id number] ROOM: DOCTOR: GABBI POST MD BIRTHDATE: [birth year] GABBI POST MD CM:OPRECORD:OPERATIVE NOTE 1252 [id number] GABBI POST MD 10/15/18 1544 interface
[2018-10-15 11:10] VITALS: BP 116/64
[2018-10-15 12:50] VITALS: BP 130/108
[2018-10-15 13:05] VITALS: BP 114/57
[2018-10-15 13:20] VITALS: BP 118/64
== END | disposition home or self-care (01) ==
LOC: SDC 10-14 14:00
DX: K29.50 Unspecified chronic gastritis without bleeding (principal); K22.2 Esophageal obstruction; K25.9 Gastric ulcer, unspecified as acute or chronic, without hemorrhage or perforation; F41.9 Anxiety disorder, unspecified; K21.9 Gastro-esophageal reflux disease without esophagitis; M19.90 Unspecified osteoarthritis, unspecified site; I12.9 Hypertensive chronic kidney disease with stage 1 through stage 4 chronic kidney disease, or unspecified chronic kidney disease; E11.22 Type 2 diabetes mellitus with diabetic chronic kidney disease; N18.9 Chronic kidney disease, unspecified; F17.210 Nicotine dependence, cigarettes, uncomplicated; G43.909 Migraine, unspecified, not intractable, without status migrainosus; J44.9 Chronic obstructive pulmonary disease, unspecified; F32.9 Major depressive disorder, single episode, unspecified; Z79.899 Other long term (current) drug therapy; Z86.73 Personal history of transient ischemic attack (TIA), and cerebral infarction without residual deficits; E78.00 Pure hypercholesterolemia, unspecified; Z86.14 Personal history of Methicillin resistant Staphylococcus aureus infection; Z90.49 Acquired absence of other specified parts of digestive tract; Z90.710 Acquired absence of both cervix and uterus; Z98.890 Other specified postprocedural states; Z72.89 Other problems related to lifestyle; Z88.8 Allergy status to other drugs, medicaments and biological substances; Z88.1 Allergy status to other antibiotic agents; Z91.041 Radiographic dye allergy status; Z87.01 Personal history of pneumonia (recurrent); Z79.82 Long term (current) use of aspirin; Z88.0 Allergy status to penicillin; Z83.3 Family history of diabetes mellitus; Z82.49 Family history of ischemic heart disease and other diseases of the circulatory system

== ENCOUNTER → 2019-05-20 | Day surgery (SDC) | payer OTHER ==
[~2019-05-20] VITALS: Ht 144.7 cm; Wt 66.7 kg
[~2019-05-20] MED LIST changes: +NEXIUM40 MG PO
[2019-05-20 12:31] VITALS: BP 127/74
== END | disposition home or self-care (01) ==
LOC: SDC 05-14 11:00
DX: K29.50 Unspecified chronic gastritis without bleeding (principal); I10 Essential (primary) hypertension; J44.9 Chronic obstructive pulmonary disease, unspecified; E11.9 Type 2 diabetes mellitus without complications; F41.9 Anxiety disorder, unspecified; F32.9 Major depressive disorder, single episode, unspecified; K21.9 Gastro-esophageal reflux disease without esophagitis; F17.210 Nicotine dependence, cigarettes, uncomplicated; Z98.890 Other specified postprocedural states; Z79.899 Other long term (current) drug therapy; Z88.8 Allergy status to other drugs, medicaments and biological substances; Z88.0 Allergy status to penicillin

== ENCOUNTER → 2019-09-01 | Outpatient (CLI) | payer OTHER | LOC: RAD 12:12 | DX: J84.10 Pulmonary fibrosis, unspecified (principal); J44.1 Chronic obstructive pulmonary disease with (acute) exacerbation; R53.83 Other fatigue; A31.9 Mycobacterial infection, unspecified ==

== ENCOUNTER → 2020-03-14 | Outpatient (CLI) | payer OTHER | END | disposition home or self-care (01) | LOC: US 08:30 | DX: I10 Essential (primary) hypertension (principal); R79.89 Other specified abnormal findings of blood chemistry ==

== ENCOUNTER → 2020-03-22 | Outpatient (CLI) | payer OTHER | END | disposition home or self-care (01) | LOC: US 06:27 | DX: I71.4 Abdominal aortic aneurysm, without rupture (principal) ==

== ENCOUNTER 2020-08-14 15:35 | Emergency (ER) | payer OTHER ==
[~2020-08-14] VITALS: Ht 144.7 cm; Wt 63.5 kg
[2020-08-14 15:41] VITALS: BP 114/80
== END 2020-08-14 19:19 | disposition home or self-care (01) ==
LOC: ED 15:35
DX: M54.41 Lumbago with sciatica, right side (principal); F17.200 Nicotine dependence, unspecified, uncomplicated; Z88.1 Allergy status to other antibiotic agents; Z88.8 Allergy status to other drugs, medicaments and biological substances; Z79.899 Other long term (current) drug therapy; Z79.82 Long term (current) use of aspirin

== ENCOUNTER → 2021-06-15 | Outpatient (CLI) | payer OTHER | END | disposition home or self-care (01) | LOC: RAD 16:29 | PROVIDERS: ATTEND Nurse Practitioner Family | DX: J43.8 Other emphysema (principal); R06.2 Wheezing; R05.9 Cough, unspecified; Z72.0 Tobacco use ==

== ENCOUNTER → 2021-07-31 | Outpatient (CLI) | payer OTHER | END | disposition home or self-care (01) | LOC: RAD 10:23 | PROVIDERS: ATTEND Nurse Practitioner Family | DX: J47.9 Bronchiectasis, uncomplicated (principal); J18.9 Pneumonia, unspecified organism; R05.9 Cough, unspecified; Z72.0 Tobacco use ==

== ENCOUNTER 2021-09-05 18:43 | Inpatient (IN) | payer OTHER ==
[~2021-09-05] VITALS: Ht 144.8 cm; Wt 66.0 kg
[2021-09-05 18:46] VITALS: BP 93/60
[2021-09-05 20:06] LABS: BASO # 0.1 10*3/uL (0.0-0.1); BASO % 1.1 % (0.0-1.0); EOS % 0.3 % (1.0-4.0); HEMATOCRIT 38.2 % (37.0-47.0); LYMPH # 2.1 10*3/uL (1.3-4.4); LYMPH % 20.1 % (27.0-41.0); MEAN CELL VOLUME 93.4 fl (81.0-99.0); MEAN CORPUSCULAR HGB 30.1 pg (27.0-31.0); MEAN CORPUSCULAR HGB CONC 32.2 g/dl (33.0-37.0); MEAN PLATELET VOLUME 8.6 fl (9.6-12.3); MONO # 1.4 10*3/uL (0.1-1.0); NEUT # 6.6 10*3/uL (2.3-7.9); NEUT % 63.6 % (47.0-73.0); NUCLEATED RED BLOOD CELL 0.1 10*3/uL (0.0-0.0); NUCLEATED RED BLOOD CELL 0.8 % (0.0-0.0); PLATELET COUNT AUTOMATED 424 10*3/uL (130-400); RED BLOOD COUNT 4.09 10*6/uL (4.10-5.10); RED CELL DISTRI WIDTH 16.5 % (0-14.5); WHITE BLOOD COUNT 10.3 10*3/uL (4.8-10.8)
[2021-09-05 20:22] LABS: ALBUMIN 2.6 gm/dl (3.1-4.5); CREATININE 1.59 mg/dL (0.55-1.02); POTASSIUM 4.9 mmol/L (3.5-5.1); TOTAL PROTEIN 7.4 gm/dL (6.4-8.2)
[2021-09-05 20:36] LABS: BILIRUBIN Negative (Negative); BLOOD Negative (Negative); CLARITY Clear (Clear); COLOR Dark Yellow (Yellow); GLUCOSE Negative (Negative); KETONE Trace (Negative); LEUKO ESTERASE Trace (Negative); NITRITE Negative (Negative)
[2021-09-05 20:54] LABS: BACTERIA 2+; EPITHELIAL CELLS 16-20; HYALINE CAST TNTC; MUCOUS TRACE; RBC 0-2 rbc/hpf (0-2)
[2021-09-05 22:33] VITALS: BP 104/53
[2021-09-06] VITALS (9 sets, daily range): BP systolic 91–128; BP diastolic 56–95
[2021-09-06 07:16] LABS: BASO # 0.1 10*3/uL (0.0-0.1); EOS # 0.1 10*3/uL (0.0-0.4); EOS % 1.7 % (1.0-4.0); HEMATOCRIT 32.5 % (37.0-47.0); LYMPH # 1.7 10*3/uL (1.3-4.4); MEAN CELL VOLUME 94.2 fl (81.0-99.0); MEAN CORPUSCULAR HGB 30.4 pg (27.0-31.0); MEAN CORPUSCULAR HGB CONC 32.3 g/dl (33.0-37.0); MEAN PLATELET VOLUME 8.7 fl (9.6-12.3); MONO # 0.7 10*3/uL (0.1-1.0); NEUT # 5.6 10*3/uL (2.3-7.9); NEUT % 67.7 % (47.0-73.0); NUCLEATED RED BLOOD CELL 0.5 % (0.0-0.0); PLATELET COUNT AUTOMATED 360 10*3/uL (130-400); RED BLOOD COUNT 3.45 10*6/uL (4.10-5.10); RED CELL DISTRI WIDTH 16.5 % (0-14.5); WHITE BLOOD COUNT 8.2 10*3/uL (4.8-10.8)
[2021-09-06 07:24] LABS: ACT PARTIAL THROMBO TIME 33.6 SECONDS (20.0-32.1); INTERNATIONAL NORM RATIO 1.5 (2.0-3.5)
[2021-09-06 07:39] LABS: ALBUMIN 2.1 gm/dl (3.1-4.5); CREATININE 1.31 mg/dL (0.55-1.02); POTASSIUM 4.9 mmol/L (3.5-5.1); TOTAL PROTEIN 6.2 gm/dL (6.4-8.2)
[2021-09-07] VITALS: BP 111/74
[2021-09-07 07:06] LABS: HEP B CORE AB, IGM Negative (Negative); HEPATITIS B SURFACE AG Negative (Negative); HEPATITIS C VIRUS ANTIBODY 0.3 s/co (0.0-0.9)
[2021-09-07 07:19] LABS: BASO # 0.1 10*3/uL (0.0-0.1); EOS % 0.3 % (1.0-4.0); HEMATOCRIT 34.5 % (37.0-47.0); LYMPH # 1.6 10*3/uL (1.3-4.4); LYMPH % 17.6 % (27.0-41.0); MEAN CORPUSCULAR HGB CONC 31.6 g/dl (33.0-37.0); MEAN PLATELET VOLUME 8.9 fl (9.6-12.3); MONO # 1.2 10*3/uL (0.1-1.0); MONO % 12.7 % (3.0-9.0); NEUT # 6.1 10*3/uL (2.3-7.9); NEUT % 67.7 % (47.0-73.0); NUCLEATED RED BLOOD CELL 0.1 10*3/uL (0.0-0.0); NUCLEATED RED BLOOD CELL 0.9 % (0.0-0.0); PLATELET COUNT AUTOMATED 303 10*3/uL (130-400); RED BLOOD COUNT 3.63 10*6/uL (4.10-5.10); RED CELL DISTRI WIDTH 16.6 % (0-14.5)
[2021-09-07 07:47] LABS: ALBUMIN 2.3 gm/dl (3.1-4.5); POTASSIUM 4.8 mmol/L (3.5-5.1)
[2021-09-07 07:58] LABS: CREATININE 1.2 mg/dL (0.55-1.02); TOTAL PROTEIN 6.8 gm/dL (6.4-8.2)
[2021-09-07 08:00] VITALS: BP 90/60
[2021-09-07 12:00] VITALS: BP 90/62
[2021-09-07 16:00] VITALS: BP 124/74
[2021-09-07 20:00] VITALS: BP 71/53
[2021-09-07 21:24] VITALS: BP 90/58
[2021-09-08] VITALS: BP 94/68
[2021-09-08 06:04] LABS: HEMATOCRIT 34.8 % (37.0-47.0); MEAN CELL VOLUME 93.3 fl (81.0-99.0); MEAN CORPUSCULAR HGB 29.8 pg (27.0-31.0); MEAN CORPUSCULAR HGB CONC 31.9 g/dl (33.0-37.0); MEAN PLATELET VOLUME 9.2 fl (9.6-12.3); NUCLEATED RED BLOOD CELL 0.1 10*3/uL (0.0-0.0); NUCLEATED RED BLOOD CELL 1.7 % (0.0-0.0); PLATELET COUNT AUTOMATED 280 10*3/uL (130-400); RED BLOOD COUNT 3.73 10*6/uL (4.10-5.10); RED CELL DISTRI WIDTH 16.5 % (0-14.5); WHITE BLOOD COUNT 7.8 10*3/uL (4.8-10.8)
[2021-09-08 06:12] LABS: ALBUMIN 2.2 gm/dl (3.1-4.5); CREATININE 1.16 mg/dL (0.55-1.02); POTASSIUM 4.3 mmol/L (3.5-5.1); TOTAL PROTEIN 6.5 gm/dL (6.4-8.2)
[2021-09-08 07:06] LABS: HEP B CORE AB, IGM Negative (Negative); HEPATITIS B SURFACE AG Negative (Negative); HEPATITIS C VIRUS ANTIBODY 0.3 s/co (0.0-0.9)
[2021-09-08 07:38] LABS: PLATELET SUFFICIENCY NORMAL (NORMAL); POLYCHROMASIA SLIGHT; TOTAL CELLS COUNTED 100 #CELLS
[2021-09-08 07:55] VITALS: BP 88/56
[2021-09-08 12:00] VITALS: BP 115/66
[2021-09-08 16:00] VITALS: BP 96/70
[2021-09-08 20:00] VITALS: BP 98/56
[2021-09-09] VITALS: BP 86/63
[2021-09-09 05:45] LABS: CREATININE 1.19 mg/dL (0.55-1.02); POTASSIUM 4.3 mmol/L (3.5-5.1); TOTAL PROTEIN 6.1 gm/dL (6.4-8.2)
[2021-09-09 08:00] VITALS: BP 88/54
[2021-09-09 12:00] VITALS: BP 88/57
[2021-09-09 16:00] VITALS: BP 84/50
[2021-09-09 20:00] VITALS: BP 102/63
[2021-09-10] VITALS: BP 92/55
[2021-09-10 06:10] LABS: ALBUMIN 1.9 gm/dl (3.1-4.5); ALKALINE PHOSPHATASE 248 U/L (45-117); BUN 19 mg/dl (7-24); CHLORIDE 107 mmol/L (98-107); CREATININE 1.08 mg/dL (0.55-1.02); POTASSIUM 3.8 mmol/L (3.5-5.1); SGOT/AST 437 IU/L (3-35); SGPT/ALT 354 U/L (12-78); SODIUM 137 mmol/L (136-145); TOTAL PROTEIN 5.9 gm/dL (6.4-8.2)
[2021-09-10 06:12] VITALS: BP 95/56
[2021-09-10 06:13] LABS: BASO % 0.4 % (0.0-1.0); EOS # 0.2 10*3/uL (0.0-0.4); EOS % 2.6 % (1.0-4.0); HEMATOCRIT 30.7 % (37.0-47.0); LYMPH # 1.7 10*3/uL (1.3-4.4); LYMPH % 19.8 % (27.0-41.0); MEAN CELL VOLUME 91.9 fl (81.0-99.0); MEAN CORPUSCULAR HGB 30.5 pg (27.0-31.0); MEAN CORPUSCULAR HGB CONC 33.2 g/dl (33.0-37.0); MEAN PLATELET VOLUME 9.4 fl (9.6-12.3); MONO # 0.7 10*3/uL (0.1-1.0); NEUT # 5.8 10*3/uL (2.3-7.9); NEUT % 68.5 % (47.0-73.0); NUCLEATED RED BLOOD CELL 0.5 % (0.0-0.0); PLATELET COUNT AUTOMATED 211 10*3/uL (130-400); RED BLOOD COUNT 3.34 10*6/uL (4.10-5.10); RED CELL DISTRI WIDTH 17.1 % (0-14.5); WHITE BLOOD COUNT 8.5 10*3/uL (4.8-10.8)
[2021-09-10 08:00] VITALS: BP 110/54
[2021-09-10 12:00] VITALS: BP 114/72
[2021-09-10 16:00] VITALS: BP 100/62
[2021-09-10 20:00] VITALS: BP 128/73
[2021-09-11] VITALS: BP 117/72
[2021-09-11 06:57] LABS: ALBUMIN 1.9 gm/dl (3.1-4.5); ALKALINE PHOSPHATASE 225 U/L (45-117); BUN 13 mg/dl (7-24); CHLORIDE 105 mmol/L (98-107); CREATININE 0.78 mg/dL (0.55-1.02); POTASSIUM 3.4 mmol/L (3.5-5.1); SGOT/AST 244 IU/L (3-35); SGPT/ALT 261 U/L (12-78); SODIUM 137 mmol/L (136-145)
[2021-09-11 09:06] VITALS: BP 103/54
[2021-09-11 11:53] VITALS: BP 99/56
[2021-09-11 15:15] LABS: ABG BASE EXCESS -0.3 mmol/L (-2.0-2.0); ARTERIAL BLOOD GAS PH 7.389 (7.35-7.45); ARTERIAL BLOOD GAS PO2 87.6 (80-90)
[2021-09-11 16:00] VITALS: BP 109/68
[2021-09-11 20:00] VITALS: BP 121/66
[2021-09-12] VITALS: BP 107/63
[2021-09-12 05:58] LABS: ALBUMIN 1.9 gm/dl (3.1-4.5); BUN 8 mg/dl (7-24); CHLORIDE 105 mmol/L (98-107); CREATININE 0.73 mg/dL (0.55-1.02); POTASSIUM 3.3 mmol/L (3.5-5.1); SGOT/AST 181 IU/L (3-35); SGPT/ALT 218 U/L (12-78); SODIUM 136 mmol/L (136-145); TOTAL PROTEIN 6.2 gm/dL (6.4-8.2)
[2021-09-12 05:59] LABS: ALKALINE PHOSPHATASE 222 U/L (45-117)
[2021-09-12 06:07] LABS: BASO % 0.4 % (0.0-1.0); EOS # 0.4 10*3/uL (0.0-0.4); EOS % 5.4 % (1.0-4.0); HEMATOCRIT 31.2 % (37.0-47.0); LYMPH # 1.3 10*3/uL (1.3-4.4); LYMPH % 17.7 % (27.0-41.0); MEAN CELL VOLUME 90.7 fl (81.0-99.0); MEAN CORPUSCULAR HGB 29.7 pg (27.0-31.0); MEAN CORPUSCULAR HGB CONC 32.7 g/dl (33.0-37.0); MEAN PLATELET VOLUME 9.5 fl (9.6-12.3); MONO # 0.7 10*3/uL (0.1-1.0); MONO % 8.9 % (3.0-9.0); NEUT # 4.9 10*3/uL (2.3-7.9); NEUT % 66.9 % (47.0-73.0); NUCLEATED RED BLOOD CELL 0.4 % (0.0-0.0); PLATELET COUNT AUTOMATED 181 10*3/uL (130-400); RED BLOOD COUNT 3.44 10*6/uL (4.10-5.10); RED CELL DISTRI WIDTH 17.5 % (0-14.5); WHITE BLOOD COUNT 7.4 10*3/uL (4.8-10.8)
[2021-09-12 08:00] VITALS: BP 117/69
[2021-09-12 12:00] VITALS: BP 119/69
[2021-09-12 16:00] VITALS: BP 121/70
[2021-09-12 20:00] VITALS: BP 129/69
[2021-09-13] VITALS: BP 102/62
[2021-09-13 07:09] LABS: BASO % 0.4 % (0.0-1.0); EOS # 0.4 10*3/uL (0.0-0.4); EOS % 4.8 % (1.0-4.0); HEMATOCRIT 30.4 % (37.0-47.0); LYMPH # 1.5 10*3/uL (1.3-4.4); MEAN CELL VOLUME 90.7 fl (81.0-99.0); MEAN CORPUSCULAR HGB 30.4 pg (27.0-31.0); MEAN CORPUSCULAR HGB CONC 33.6 g/dl (33.0-37.0); MEAN PLATELET VOLUME 9.7 fl (9.6-12.3); MONO # 0.8 10*3/uL (0.1-1.0); MONO % 10.2 % (3.0-9.0); NEUT # 4.9 10*3/uL (2.3-7.9); NEUT % 64.1 % (47.0-73.0); NUCLEATED RED BLOOD CELL 0.3 % (0.0-0.0); PLATELET COUNT AUTOMATED 157 10*3/uL (130-400); RED BLOOD COUNT 3.35 10*6/uL (4.10-5.10); RED CELL DISTRI WIDTH 17.5 % (0-14.5); WHITE BLOOD COUNT 7.7 10*3/uL (4.8-10.8)
[2021-09-13 07:27] LABS: ALBUMIN 1.8 gm/dl (3.1-4.5); ALKALINE PHOSPHATASE 198 U/L (45-117); BUN 8 mg/dl (7-24); CHLORIDE 98 mmol/L (98-107); CREATININE 0.79 mg/dL (0.55-1.02); POTASSIUM 2.9 mmol/L (3.5-5.1); SGOT/AST 124 IU/L (3-35); SGPT/ALT 164 U/L (12-78); SODIUM 137 mmol/L (136-145)
[2021-09-13 08:00] VITALS: BP 117/72
[2021-09-13 12:00] VITALS: BP 100/64
[2021-09-13 16:00] VITALS: BP 95/56
[2021-09-13 20:00] VITALS: BP 111/66
[2021-09-14] VITALS: BP 123/70
[2021-09-14 04:06] LABS: IMMUNOGLOBULIN M, QNT 123 mg/dL (26-217); RHEUMATOID ARTHRITIS FACTOR <10.0 IU/mL (<14.0)
[2021-09-14 06:14] LABS: BASO % 0.2 % (0.0-1.0); EOS # 0.3 10*3/uL (0.0-0.4); EOS % 3.2 % (1.0-4.0); HEMATOCRIT 32.8 % (37.0-47.0); LYMPH # 1.4 10*3/uL (1.3-4.4); LYMPH % 16.5 % (27.0-41.0); MEAN CELL VOLUME 88.6 fl (81.0-99.0); MEAN CORPUSCULAR HGB 29.7 pg (27.0-31.0); MEAN CORPUSCULAR HGB CONC 33.5 g/dl (33.0-37.0); MEAN PLATELET VOLUME 9.4 fl (9.6-12.3); MONO # 0.9 10*3/uL (0.1-1.0); MONO % 10.8 % (3.0-9.0); NEUT # 5.7 10*3/uL (2.3-7.9); NEUT % 68.6 % (47.0-73.0); PLATELET COUNT AUTOMATED 164 10*3/uL (130-400); RED CELL DISTRI WIDTH 17.2 % (0-14.5); WHITE BLOOD COUNT 8.2 10*3/uL (4.8-10.8)
[2021-09-14 06:23] LABS: BUN 8 mg/dl (7-24); CHLORIDE 95 mmol/L (98-107); CREATININE 0.94 mg/dL (0.55-1.02); SGOT/AST 104 IU/L (3-35); SGPT/ALT 143 U/L (12-78); SODIUM 136 mmol/L (136-145)
[2021-09-14 06:25] LABS: ALKALINE PHOSPHATASE 202 U/L (45-117); TOTAL PROTEIN 6.6 gm/dL (6.4-8.2)
[2021-09-14 08:00] VITALS: BP 117/56
[2021-09-14 12:00] VITALS: BP 124/73
[2021-09-14 14:08] LABS: ALDOLASE 7.8 U/L (3.3-10.3); ANGIOTENSIN-CONVERTING ENZYME 39 U/L (14-82)
[2021-09-14 16:00] VITALS: BP 123/69
[2021-09-14 16:08] LABS: IGG SUBCLASS 1 1001 mg/dL (248-810); IGG SUBCLASS 2 332 mg/dL (130-555); IGG SUBCLASS 3 194 mg/dL (15-102); IGG SUBCLASS 4 152 mg/dL (2-96); IMMUNOGLOBULIN G, QNT 1716 mg/dL (586-1602)
[2021-09-14 20:00] VITALS: BP 129/73
[2021-09-15] VITALS: BP 112/89
[2021-09-15 06:30] LABS: BASO % 0.4 % (0.0-1.0); EOS # 0.4 10*3/uL (0.0-0.4); EOS % 4.2 % (1.0-4.0); HEMATOCRIT 30.8 % (37.0-47.0); LYMPH # 1.4 10*3/uL (1.3-4.4); LYMPH % 17.1 % (27.0-41.0); MEAN CELL VOLUME 87.7 fl (81.0-99.0); MEAN CORPUSCULAR HGB 29.6 pg (27.0-31.0); MEAN CORPUSCULAR HGB CONC 33.8 g/dl (33.0-37.0); MEAN PLATELET VOLUME 9.7 fl (9.6-12.3); MONO # 1.1 10*3/uL (0.1-1.0); MONO % 12.7 % (3.0-9.0); NEUT # 5.3 10*3/uL (2.3-7.9); NEUT % 64.6 % (47.0-73.0); PLATELET COUNT AUTOMATED 165 10*3/uL (130-400); RED BLOOD COUNT 3.51 10*6/uL (4.10-5.10); RED CELL DISTRI WIDTH 17.1 % (0-14.5); WHITE BLOOD COUNT 8.3 10*3/uL (4.8-10.8)
[2021-09-15 06:46] LABS: ALBUMIN 1.8 gm/dl (3.1-4.5); ALKALINE PHOSPHATASE 167 U/L (45-117); BUN 9 mg/dl (7-24); CHLORIDE 96 mmol/L (98-107); CREATININE 0.69 mg/dL (0.55-1.02); POTASSIUM 3.3 mmol/L (3.5-5.1); SGOT/AST 72 IU/L (3-35); SGPT/ALT 99 U/L (12-78); SODIUM 137 mmol/L (136-145); TOTAL PROTEIN 6.1 gm/dL (6.4-8.2)
[2021-09-15 08:00] VITALS: BP 121/66
[2021-09-15 12:00] VITALS: BP 93/67
[2021-09-15 14:00] VITALS: BP 97/53
[2021-09-15 17:06] LABS: ATYPICAL PANCA <1:20 titer (Neg:<1:20)
[2021-09-15 20:00] VITALS: BP 116/75
[2021-09-16] VITALS: BP 104/67
[2021-09-16 06:16] LABS: BASO # 0.1 10*3/uL (0.0-0.1); BASO % 0.5 % (0.0-1.0); EOS # 0.5 10*3/uL (0.0-0.4); EOS % 5.4 % (1.0-4.0); HEMATOCRIT 31.8 % (37.0-47.0); LYMPH # 1.5 10*3/uL (1.3-4.4); LYMPH % 15.8 % (27.0-41.0); MEAN CELL VOLUME 87.8 fl (81.0-99.0); MEAN CORPUSCULAR HGB 29.6 pg (27.0-31.0); MEAN CORPUSCULAR HGB CONC 33.6 g/dl (33.0-37.0); MEAN PLATELET VOLUME 9.7 fl (9.6-12.3); MONO # 1.3 10*3/uL (0.1-1.0); MONO % 13.6 % (3.0-9.0); NEUT # 6.1 10*3/uL (2.3-7.9); NEUT % 63.8 % (47.0-73.0); PLATELET COUNT AUTOMATED 205 10*3/uL (130-400); RED BLOOD COUNT 3.62 10*6/uL (4.10-5.10); RED CELL DISTRI WIDTH 17.2 % (0-14.5); WHITE BLOOD COUNT 9.6 10*3/uL (4.8-10.8)
[2021-09-16 06:21] LABS: BUN 11 mg/dl (7-24); CHLORIDE 94 mmol/L (98-107); CREATININE 0.84 mg/dL (0.55-1.02); POTASSIUM 3.4 mmol/L (3.5-5.1); SODIUM 132 mmol/L (136-145)
[2021-09-16 08:00] VITALS: BP 118/61
[2021-09-16 12:00] VITALS: BP 114/66
[2021-09-16] MEDS ORDERED: Carafate1 GM PO (12:17)
[2021-09-16] MEDS ORDERED: PROTONIX40 MG PO (12:17)
[2021-09-16] MEDS ORDERED: MUCUS RELIEF600 MG PO (12:17)
[2021-09-16] MEDS ORDERED: K-TAB20 MEQ PO (12:17)
[2021-09-16] MEDS ORDERED: DOXYCYCLINE HY100 M3 PO (12:17)
== END 2021-09-16 13:51 | disposition home or self-care (01) | DRG 193 ==
LOC: ED 18:43 → EDHOLD 09-06 05:27 → 4E 09-06 05:27
PROVIDERS: Emergency Medicine; Family Medicine; Internal Medicine; Internal Medicine Critical Care Medicine; Internal Medicine Gastroenterology; Student in an Organized Health Care Education/Training Program; ADMIT Internal Medicine; ATTEND Internal Medicine
DX: J18.9 Pneumonia, unspecified organism (principal); N17.0 Acute kidney failure with tubular necrosis; J96.21 Acute and chronic respiratory failure with hypoxia; E87.2 Acidosis; E87.1 Hypo-osmolality and hyponatremia; E44.0 Moderate protein-calorie malnutrition; Z20.822 Contact with and (suspected) exposure to COVID-19; I34.1 Nonrheumatic mitral (valve) prolapse; J43.9 Emphysema, unspecified; Z66 Do not resuscitate; E87.6 Hypokalemia; K21.9 Gastro-esophageal reflux disease without esophagitis; F17.200 Nicotine dependence, unspecified, uncomplicated; R74.01 Elevation of levels of liver transaminase levels; J84.10 Pulmonary fibrosis, unspecified; R73.9 Hyperglycemia, unspecified; I10 Essential (primary) hypertension; E78.2 Mixed hyperlipidemia; Z86.73 Personal history of transient ischemic attack (TIA), and cerebral infarction without residual deficits; Z90.49 Acquired absence of other specified parts of digestive tract; Z90.710 Acquired absence of both cervix and uterus; Z68.30 Body mass index [BMI] 30.0-30.9, adult; Z88.1 Allergy status to other antibiotic agents; Z88.8 Allergy status to other drugs, medicaments and biological substances

== ENCOUNTER 2021-09-18 00:25 | Emergency (ER) | payer OTHER ==
[~2021-09-18 00:25] MED LIST changes: +Carafate1 GM PO; +DOXYCYCLINE HY100 M3 PO; +K-TAB20 MEQ PO; +MUCUS RELIEF600 MG PO
[2021-09-18 01:33] VITALS: BP 0/0
== END 2021-09-18 04:05 ==
LOC: ED 00:25
DX: I46.9 Cardiac arrest, cause unspecified (principal); M19.90 Unspecified osteoarthritis, unspecified site; K21.9 Gastro-esophageal reflux disease without esophagitis; J44.9 Chronic obstructive pulmonary disease, unspecified; I10 Essential (primary) hypertension; E78.00 Pure hypercholesterolemia, unspecified; Z88.8 Allergy status to other drugs, medicaments and biological substances; Z88.1 Allergy status to other antibiotic agents; Z79.899 Other long term (current) drug therapy; Z79.82 Long term (current) use of aspirin; Z90.49 Acquired absence of other specified parts of digestive tract; Z98.890 Other specified postprocedural states; Z87.891 Personal history of nicotine dependence; Z86.73 Personal history of transient ischemic attack (TIA), and cerebral infarction without residual deficits